=== PATIENT | female | born 1970 | race African-American/Black ===

== ENCOUNTER 2020-01-02 17:27 | Emergency (ER) | payer MEDICAID, OTHER ==
[~2020-01-02] VITALS: Ht 175.3 cm; Wt 109.0 kg
[2020-01-02] MEDS ORDERED: TRAMADOL 50MG TABLET PO ONE (19:00)
[2020-01-02] MEDS ORDERED: KETOROLAC 30MG/ML VIAL IV ONE (19:00)
[2020-01-02 21:30] VITALS: BP 121/74
== END 2020-01-02 22:17 | disposition home or self-care (01) ==
LOC: ER 17:27
DX: R07.89 Other chest pain (principal); R22.2 Localized swelling, mass and lump, trunk
CPT/HCPCS: 96374; 99283; J1885